=== PATIENT | female | born 1995 | race Caucasian/White ===

== ENCOUNTER 2020-06-05 01:15 | Inpatient (IN) | payer BC ==
[2020-06-05] MEDS ORDERED: CARBOPROST TROMETHAMINE 250 MCG/ML 1 ML AMP IM PRN (01:48)
[2020-06-05] MEDS ORDERED: OXYTOCIN 10 UNIT/ML 1 ML VIAL IM PRN (01:48)
[2020-06-05] MEDS ORDERED: LIDOCAINE 0.5% (PF) 5 MG/ML (50 ML SDV) SQ PRN (01:48)
[2020-06-05] MEDS ORDERED: METHYLERGONOVINE 0.2 MG/ML 1 ML AMP IM PRN (01:48)
[2020-06-05] MEDS ORDERED: TERBUTALINE 1 MG/ML VIAL SQ PRN (01:48)
[2020-06-05 02:31] LABS: Basophils # (A) 0.1 k/uL (0-0.2); Basophils % (A) 0 %; Eosinophils # (A) 0.1 k/uL (0-0.7); Eosinophils % (A) 0 %; HCT 41.4 % (34.0-46.0); HGB 13.5 gm/dL (11.4-16.0); Lymphocytes # (A) 3.1 k/uL (1.0-4.8); Lymphocytes % (A) 12 %; MCH 29.1 pg (25.0-35.0); MCHC 32.6 g/dL (31.0-37.0); MCV 89.3 fL (80.0-100.0); Mean Platelet Volume 9.2; Monocytes # (A) 1.1 k/uL (0-1.0); Monocytes % (A) 4 %; Neutrophils # (A) 21.4 k/uL (1.3-7.7); Neutrophils % (A) 81 %; Platelet Count 386 k/uL (150-450); RBC 4.64 m/uL (3.80-5.40); RDW 13.1 % (11.5-15.5); WBC 26.4 k/uL (3.8-10.6)
[2020-06-05] MEDS ORDERED: diphenhydrAMINE 50 MG CAP PO PRN (03:59)
[2020-06-05] MEDS ORDERED: LANOLIN CREAM 5 GM TUBE TOPICAL PRN (03:59)
[2020-06-05] MEDS ORDERED: ZOLPIDEM 5 MG TAB PO PRN (03:59)
[2020-06-05] MEDS ORDERED: BENZOCAINE/MENTHOL SPRAY 1 GM/SPRAY AEROSOL TOPICAL PRN (03:59)
[2020-06-05] MEDS ORDERED: diphenhydrAMINE 50 MG/ML 1 ML VIAL IVP PRN ×2 (03:59)
[2020-06-05] MEDS ORDERED: HYDROCORTISONE 2.5% RECTAL CREAM 30 GM TUBE RECTAL PRN (03:59)
[2020-06-05] MEDS ORDERED: SIMETHICONE 80 MG CHEWABLE PO PRN (03:59)
[2020-06-05] MEDS ORDERED: diphenhydrAMINE 25 MG CAP PO PRN (03:59)
[2020-06-05] MEDS ORDERED: ACETAMINOPHEN TAB 325 MG TAB PO PRN (03:59)
[2020-06-05] MEDS ORDERED: OXYTOCIN 20 UNITS/1000 ML NS 1,000 ML IV SCH (04:00)
--- NOTE | 2020-06-05 04:08 | P.HPOB ---
History of Present Illness H&P Date: 06/05/20 Chief Complaint: Regular uterine contractions This is a 24-year-old white female 1 para 0 EDC 06/16/2028 at 38-3/7 weeks' gestation. Patient presented from home with strong regular uterine contractions. Fetus is been active throughout the . She denied vag inal bleeding or fluid leakage. Past medical history is unremarkable. Past surgical history is negative. Current medications vitamins daily, baby aspirin daily. ALLERGIES Ceclor, reaction unknown. Family history significant for hypertension, type 2 diabetes, aneurysm. Social history patient is single, boyfriend is present and involved. She was a previous marijuana smoker but quit for . She denies tobacco alcohol or drug use. history is significant for blood type O+, rubella status immune. VDRL testing, hepatitis B surface antigen, HIV testing, urine culture, gonorrhea and chlamydia cultures, group B strep cultures all negative. One-hour Glucola 131. On exam patient is 6 foot 0 inches, 265 pounds, blood pressure 136/85 on admission, pulse 80, vital signs stable and she is afebrile. The general physical exam is within normal limits. She has multiple tattoos throughout the body, along with bilateral piercing. Chest is otherwise clear. Cervix is 5 cm dilated on admission, 9 cm dilated, vertex presentation, 90% effaced, -1 station at the bedside. Artificial amniorrhexis reveals scant clear fluid. heart rate is consistent with reactive NST. Impression: 38-3/7 weeks intrauterine , active spontaneous labor. All signs reassuring. Plan close maternal and surveillance. Epidural has been requested but labs are still pending. Anticipate normal spontaneous vaginal delivery. Review of Systems Constitutional: Reports as per HPI Past Medical History Past Medical History: No Reported History History of Any Multi-Drug Resistant Organisms: None Reported Past Surgical History: No Surgical Hx Reported Past Anesthesia/Blood Transfusion Reactions: No Reported Reaction Past Psychological History: No Psychological Hx Reported Smoking Status: Never smoker Past Drug Use History: Marijuana - Past Family History Mother Family Medical History: No Reported History Medications and Allergies Home Medications Medication Instructions Recorded Confirmed Type No Known Home Medications 06/05/20 06/05/20 History Allergies Allergy/AdvReac Type Severity Reaction Status Date / Time cefaclor [From Ceclor] AdvReac Unknown Verified 06/05/20 01:24 Childhood Exam Vital Signs Temp Pulse Resp BP 06/05/20 01:48 98.1 F 80 18 136/85 Intake and Output 06/04/20 06/04/20 06/05/20 14:59 22:59 06:59 Other: Weight 120.202 kg See dictation under HPI please Results Result Diagrams: 06/05/20 02:00 Abnormal Lab Results - Last 24 Hours (Table) 06/05/20 Range/Units 02:00 WBC 26.4 H (3.8-10.6) k/uL Neutrophils # 21.4 H (1.3-7.7) k/uL Monocytes # 1.1 H (0-1.0) k/uL Assessment and Plan Assessment: 38-3/7 weeks intrauterine , active spontaneous labor. All signs reassuring. Plan: Continue close maternal and surveillance. Anticipate normal spontaneous vaginal delivery. Time with Patient: Less than 30
--- NOTE | 2020-06-05 04:11 | P.PROBDLV ---
Vaginal Delivery Note - . Vaginal Delivery Note: This is a 24-year-old white female 1 para 0 EDC 06/16/2020 at 38-3/7 weeks' gestation. Patient presented in strong active labor, denying vaginal bleeding or fluid leakage. Admission in triage revealed an exam of 5 cm dilation. Patient was admitted. She requested an epidural however she was 8-9 cm before the labs were available. Stadol was offered and declined. Please see admitting H&P for details. Patient progressed well through the first stage of labor was judged to be completely dilated at 0305 hrs. Artificial amniorrhexis had revealed clear fluid. She began the second stage of labor at that time. Perineal body was prepped and draped in usual sterile fashion. With excellent maternal expulsive efforts 's head delivered and she restituted accordingly at 0342 hours. There was no nuchal cord noted. The left or anterior shoulder was gently delivered from underneath the pubic symphysis at which time the oropharynx, nasopharynx, and external nares were all bulb suctioned on the perineal body. Patient was officially delivered of a liveborn female at 0348 hours. Umbilical cord was doubly clamped and ligated, she was handed to waiting nurses for evaluation where scores of 8 and 9 at one and 5 minutes respectively were given. The placenta delivered spontaneously, it was inspected and noted to be intact with trivascular cord at 0348 hours. At this time the uterus is massaged and oxytocin is given. Careful inspection of the cervix, vagina, perineum, periurethral, and perirectal areas revealed a small left labial laceration, first-degree. This was injected with lidocaine and repaired with a single [id number] suture of repeat. All sponge needle and enhancement counts are correct and the procedure. Patient is allowed to begin the bonding experience in the LDR.
[2020-06-05] MEDS: IBUPROFEN 600 MG TAB PO PRN ×2 (04:18→15:28)
[2020-06-05] MEDS: SENNOSIDES-DOCUSATE SODIUM 1 EACH TAB PO SCH ×2 (08:59→21:17)
[2020-06-05] MEDS: LACTATED RINGERS 1,000 ML IV SCH (21:16)
[2020-06-05 23:59] VITALS: TEMP 98.9
[2020-06-06] MEDS: IBUPROFEN 600 MG TAB PO PRN (05:10)
[2020-06-06 07:26] LABS: Basophils # (A) 0.1 k/uL (0-0.2); Basophils % (A) 1 %; Eosinophils # (A) 0.2 k/uL (0-0.7); Eosinophils % (A) 1 %; HCT 36.1 % (34.0-46.0); HGB 11.7 gm/dL (11.4-16.0); Lymphocytes # (A) 3.6 k/uL (1.0-4.8); Lymphocytes % (A) 19 %; MCH 29.7 pg (25.0-35.0); MCHC 32.5 g/dL (31.0-37.0); MCV 91.4 fL (80.0-100.0); Mean Platelet Volume 8.7; Monocytes # (A) 0.9 k/uL (0-1.0); Monocytes % (A) 5 %; Neutrophils # (A) 13.5 k/uL (1.3-7.7); Neutrophils % (A) 72 %; Platelet Count 330 k/uL (150-450); RBC 3.95 m/uL (3.80-5.40); RDW 13.4 % (11.5-15.5); WBC 18.7 k/uL (3.8-10.6)
[2020-06-06] MEDS: SENNOSIDES-DOCUSATE SODIUM 1 EACH TAB PO SCH (08:00)
--- NOTE | 2020-06-06 09:03 | P.DS ---
Providers Date of admission: 06/05/20 01:47 Expected date of discharge: 06/06/20 Attending physician: Claudia Ma Primary care physician: Stated None - Discharge Diagnosis(es) (1) Term Current Visit: Yes Status: Acute (2) Active labor Current Visit: Yes Status: Acute (3) Status post vaginal delivery Current Visit: Yes Status: Acute Hospital Course: This is a 24-year-old 1 para 0 that presented to labor and delivery at 38-3/7 weeks' complaints of regular painful contractions. Patient had been receiving routine care and noted good movement upon presentation. Patient denied vaginal bleeding or loss of fluid at that time of admission. Patient was admitted to labor and delivery and progressed through labor. Patient became complete and started pushing and had a normal spontaneous vaginal delivery of a viable female at 342, weight of 7 lbs. 2 oz. and Apgars of 8 and 9 at one and 5 minutes respectively. Patient did sustain a first-degree labial laceration that was repaired without difficulty. Patient has done well . On this day #1 she is ambulating and voiding without difficulty she is tolerating a regular diet without nausea or vomiting. She is breast-feeding without difficulty. She states she does wish discharge home. Patient Condition at Discharge: Good Plan - Discharge Summary New Discharge Prescriptions: No Action No Known Home Medications Discharge Medication List No Known Home Medications 06/05/20 [History] Follow up Appointment(s)/Referral(s): Claudia Ma MD [STAFF PHYSICIAN] - 6 Weeks Patient Instructions/Handouts: Vaginal Delivery (DC), Vaginal Delivery (GEN) Discharge Disposition: HOME SELF-CARE
[2020-06-06 09:39] VITALS: BP 136/82; PULSE 76; RESP 18
== END 2020-06-06 11:35 | disposition home or self-care (01) | DRG 807 ==
LOC: FBPOP 01:15 → 4FBP 01:47
PROVIDERS: ADMIT Obstetrics & Gynecology; ATTEND Obstetrics & Gynecology
PROC: 10E0XZZ Delivery of Products of Conception, External Approach (ICD-10-PCS; principal; 2020-06-05)
PROC: 0HQ9XZZ Repair Perineum Skin, External Approach (ICD-10-PCS; 2020-06-05)
DX: O70.0 First degree perineal laceration during delivery (principal); Z37.0 Single live birth; Z3A.38 38 weeks gestation of pregnancy; Z88.1 Allergy status to other antibiotic agents; Z83.3 Family history of diabetes mellitus; Z82.49 Family history of ischemic heart disease and other diseases of the circulatory system
CPT/HCPCS: 59025; 85025; 86850; 86900; 86901; 99213

== ENCOUNTER → 2021-01-11 | Outpatient (CLI) | payer BC | END | disposition home or self-care (01) | LOC: LABWHC1 16:12 | PROVIDERS: ATTEND Emergency Medicine | DX: Z20.822 Contact with and (suspected) exposure to COVID-19 (principal) ==

== ENCOUNTER → 2023-01-04 | Outpatient (CLI) | payer BC ==
[2023-01-04 15:37] LABS: HCT 34.9 % (37.2-46.3); HGB 11.7 g/dL (12.0-15.0); MCHC 33.5 g/dL (32.0-37.0); MCV 92.3 fL (80.0-97.0); Mean Platelet Volume 11.1 fL (9.5-12.2); NRBC Per 100 WBC 0 /100 WBCS (0.0-0.0); Platelet Count 326 X 10*3/uL (140-440); RBC 3.78 X 10*6/uL (4.10-5.20); WBC 16.17 X 10*3/uL (4.50-10.00)
== END | disposition home or self-care (01) ==
LOC: LABWHC1 11:29
PROVIDERS: ATTEND Obstetrics & Gynecology
DX: Z36.9 Encounter for antenatal screening, unspecified (principal)
CPT/HCPCS: 36415; 82950; 85027

== ENCOUNTER 2023-03-20 05:55 | Inpatient (IN) | payer BC, OTHER ==
[2023-03-20] MEDS: LACTATED RINGERS 1,000 ML IV SCH ×2 (06:05→11:26)
[2023-03-20] MEDS ORDERED: LIDOCAINE 0.5% (PF) 5 MG/ML (50 ML SDV) SQ PRN (06:09)
[2023-03-20] MEDS ORDERED: TRANEXAMIC 1,000 MG/100ML-NACL 1,000 MG in EMPTY BAG 1 BAG IV PRN (06:09)
[2023-03-20] MEDS ORDERED: OXYTOCIN 10 UNIT/ML 1 ML VIAL IM PRN (06:09)
[2023-03-20] MEDS ORDERED: METHYLERGONOVINE 0.2 MG/ML 1 ML AMP IM PRN (06:09)
[2023-03-20] MEDS ORDERED: TERBUTALINE 1 MG/ML VIAL SQ PRN (06:09)
[2023-03-20] MEDS ORDERED: miSOPROStoL 200 MCG TAB PO PRN (06:09)
[2023-03-20] MEDS ORDERED: CARBOPROST TROMETHAMINE 250 MCG/ML 1 ML AMP IM PRN (06:09)
[2023-03-20] MEDS ORDERED: OXYTOCIN 30 UNITS/500 ML NS 30 UNIT in SALINE 1 500ML.BAG IV SCH ×2 (06:15→13:15)
[2023-03-20 06:57] LABS: Basophils # (A) 0.1 k/uL (0-0.2); Basophils % (A) 0 %; Eosinophils # (A) 0.3 k/uL (0-0.7); Eosinophils % (A) 2 %; HCT 37.8 % (34.0-46.0); HGB 12.5 gm/dL (11.4-16.0); Lymphocytes # (A) 3.4 k/uL (1.0-4.8); Lymphocytes % (A) 23 %; MCHC 32.9 g/dL (31.0-37.0); MCV 91.2 fL (80.0-100.0); Mean Platelet Volume 9.5; Monocytes # (A) 0.9 k/uL (0-1.0); Monocytes % (A) 6 %; Neutrophils # (A) 10.1 k/uL (1.3-7.7); Neutrophils % (A) 67 %; Platelet Count 346 k/uL (150-450); RBC 4.15 m/uL (3.80-5.40); RDW 13.2 % (11.5-15.5); WBC 15.1 k/uL (3.8-10.6)
--- NOTE | 2023-03-20 08:32 | P.HPOB ---
History of Present Illness H&P Date: 03/20/23 Chief Complaint: elective induction of labor Ms. Nascimento is a 27 year old at 39 weeks and 1 day (with EDC of 03/26/2023 by LMP c/w 10 week US) who presents to labor and delivery for elective induction of labor. has been complicated by tobacco and marijuana use. Patient was counseled during the on the risks associated with use of these and was advised to quit. At 32 weeks the fetus measured in the 60%ile for gestational age on ultrasound. Obstetric history: 1 full term vaginal delivery, female infant weighing 7#2ounces, no complications Maternal serologies: blood type O positive, antibody screen negative, rubella immune, VDRL non-reactive, HBsAg negative, HIV negative, 1 hour GTT 116, GBS negative. TDap administered on 01/02/2023. Past Medical History Past Medical History: No Reported History History of Any Multi-Drug Resistant Organisms: None Reported Past Surgical History: No Surgical Hx Reported Past Anesthesia/Blood Transfusion Reactions: No Reported Reaction Past Psychological History: No Psychological Hx Reported Smoking Status: Never smoker Past Drug Use History: Marijuana - Past Family History Mother Family Medical History: No Reported History Medications and Allergies Home Medications Medication Instructions Recorded Confirmed Type Aspirin [[place] Aspirin EC] 81 mg PO DAILY 03/20/23 03/20/23 History Vit No.179/Iron/Folic 1 tablet PO DAILY 03/20/23 03/20/23 History [ Tablet] Allergies Allergy/AdvReac Type Severity Reaction Status Date / Time cefaclor [From [facility]] AdvReac Unknown Verified 03/20/23 06:01 Childhood Exam Vital Signs Temp Pulse Resp BP Pulse Ox 03/20/23 06:00 96.7 F L 56 L 16 122/83 100 Intake and Output 03/19/23 03/20/23 03/20/23 22:59 06:59 14:59 Other: Weight 104.326 kg Focused physical exam is performed. This is a healthy-appearing in no apparent distress. Abdomen gravid, non-tender. Cervical exam is 3 centimeters, 70% effaced, and -3 station. AROM is undertaken with clear fluid noted. Extremities non-tender, non-edematous. heart tones are reactive and reassuring on NST. Results Result Diagrams: 03/20/23 06:02 Abnormal Lab Results - Last 24 Hours (Table) 03/20/23 Range/Units 06:02 WBC 15.1 H (3.8-10.6) k/uL Neutrophils # 10.1 H (1.3-7.7) k/uL Assessment and Plan Assessment: 27 year old at 39 weeks and 1 day presenting for elective induction of labor Plan: Admit, NPO, mIVF, pitocin per protocol, s/p AROM, epidural prn. Time with Patient: Less than 30
[2023-03-20] MEDS ORDERED: ZOLPIDEM 5 MG TAB PO PRN (13:12)
[2023-03-20] MEDS ORDERED: diphenhydrAMINE 50 MG/ML 1 ML VIAL IVP PRN ×2 (13:12)
[2023-03-20] MEDS ORDERED: SIMETHICONE 80 MG CHEWABLE PO PRN (13:12)
[2023-03-20] MEDS ORDERED: HYDROCORTISONE 2.5% RECTAL CREAM 30 GM TUBE RECTAL PRN (13:12)
[2023-03-20] MEDS ORDERED: diphenhydrAMINE 50 MG CAP PO PRN (13:12)
[2023-03-20] MEDS ORDERED: LANOLIN CREAM 5 GM TUBE TOPICAL PRN (13:12)
[2023-03-20] MEDS ORDERED: diphenhydrAMINE 25 MG CAP PO PRN (13:12)
[2023-03-20] MEDS ORDERED: IBUPROFEN 600 MG TAB PO PRN (13:12)
[2023-03-20] MEDS ORDERED: BENZOCAINE/MENTHOL SPRAY 1 GM/SPRAY AEROSOL TOPICAL PRN (13:12)
[2023-03-20] MEDS ORDERED: ACETAMINOPHEN TAB 325 MG TAB PO PRN (13:12)
--- NOTE | 2023-03-20 13:12 | P.PROBDLV ---
Vaginal Delivery Note - . Vaginal Delivery Note: DATE OF SERVICE: 03/20/2023 PROCEDURE: Vaginal Delivery ATTENDING: Dr. Yari Wagner MD ESTIMATED BLOOD LOSS: 200 mL FINDINGS: VMI, Apgars 9/9, Weight 7#0oz PROCEDURE: Patient was a 27y/o at 39 weeks and 1 day who presented to labor and delivery for elective induction of labor. Patient progressed quickly to complete dilation after AROM was performed and oxytocin had been running per protocol. Head delivered and a 1-minute shoulder dystocia was encountered. Please see separate paperwork for further details on the maneuvers performed. One nuchal cord was reduced and the shoulders and body were delivered over intact perineum. Infant placed on maternal abdomen and bulb suctioned. Cord was clamped and cut. Placenta delivered whole with gentle cord traction. Oxytocin was started to facilitate uterine tone. Uterine fundus firm and bleeding minimal upon fundal massage. Perineal inspection revealed a periurethral abrasion that was hemostatic and did not require repair. Patient stable .
[2023-03-20] MEDS: SENNOSIDES-DOCUSATE SODIUM 1 EACH TAB PO SCH (20:43)
[2023-03-21 00:48] VITALS: PULSE 61; RESP 16
[2023-03-21] MEDS: SENNOSIDES-DOCUSATE SODIUM 1 EACH TAB PO SCH (07:51)
[2023-03-21 08:00] VITALS: BP 116/80; TEMP 98.2
--- NOTE | 2023-03-21 09:55 | P.PNOBGVD ---
Subjective - Subjective Principal diagnosis: s/p vaginal delivery complicated by shoulder dystocia Interval history: The patient is doing well this morning and had no acute events overnight. She has no complaints this morning. She reports minimal lochia, passing flatus, voiding without difficulty, ambulating, and eating/drinking without nausea or vomiting. She is her infant without difficulty. She denies chest pain, shortness of breathing, fevers, or chills overnight. She denies pain or swelling in the legs. Patient reports: Reports appetite normal, Reports voiding normally, Reports pain well controlled, Reports ambulating normally : doing well, nursing well Objective - Latest Vital Signs Latest vital signs: Vital Signs Temp Pulse Resp BP Pulse Ox 03/21/23 07:58 98.2 F 61 16 116/80 99 03/21/23 00:00 98.6 F 61 16 113/61 03/20/23 20:00 98.1 F 56 L 17 111/71 100 03/20/23 16:00 97.9 F 66 16 113/77 100 03/20/23 15:12 54 L 16 122/79 03/20/23 14:42 55 L 16 126/83 03/20/23 14:12 56 L 16 144/63 03/20/23 13:57 48 L 16 125/68 03/20/23 13:42 62 16 124/82 03/20/23 13:27 62 16 124/82 03/20/23 13:12 59 L 16 120/61 100 Intake and Output 03/20/23 03/21/23 03/21/23 22:59 06:59 14:59 Intake Total 1150 Output Total 64 Balance 1086 Intake: IV 1150 Output: Output, Quantitative 64 Blood Loss Other: # Voids 1 - Exam Extremities: Present: normal Abdomen: Present: normal appearance Uterus: Present: normal, firm Assessment and Plan Assessment: 27 year old now PPD#1 s/p vaginal delivery complicated by shoulder dystocia Plan: Patient meeting all milestones appropriately. Will discharge home today after infant circumcision.
--- NOTE | 2023-03-21 09:58 | P.DS ---
Providers Date of admission: 03/20/23 05:55 Expected date of discharge: 03/21/23 Attending physician: Yari Wagner MD Primary care physician: Stated None Hospital Course: 27 year old now PPD#1 s/p vaginal delivery complicated by shoulder dystocia. The patient is doing well this morning and had no acute events overnight. She has no complaints this morning. She desires discharge home today. She reports minimal lochia, passing flatus, voiding without difficulty, ambulating, and eating/drinking without nausea or vomiting. doing well at bedside, s/p circumcision. She denies chest pain, shortness of breathing, fevers , or chills overnight. She denies pain or swelling in the legs. restrictions are reviewed with the patient including pelvic rest for 6 weeks. The patient is encouraged to call the office if she experiences any heavy bleeding, foul-smelling discharge, breast complaints, or any if she has any other concerns. She will follow up in the office in 6 weeks for exam. All questions are answered. Assessment: 27 year old now PPD#1 s/p vaginal delivery complicated by shoulder dystocia Patient Condition at Discharge: Good Plan - Discharge Summary Discharge Rx Participant: No New Discharge Prescriptions: No Action Aspirin [[place] Aspirin EC] 81 mg PO DAILY Vit No.179/Iron/Folic [ Tablet] 1 tablet PO DAILY Discharge Medication List Aspirin [[place] Aspirin EC] 81 mg PO DAILY 03/20/23 [History] Vit No.179/Iron/Folic [ Tablet] 1 tablet PO DAILY 03/20/23 [History] Follow up Appointment(s)/Referral(s): Yari Wagner MD [STAFF PHYSICIAN] - 6 Weeks ( visit) Patient Instructions/Handouts: Depression (DC), Perineal Care (DC), Bleeding (DC) Activity/Diet/Wound Care/Special Instructions: Pelvic rest for 6 weeks Discharge Disposition: HOME SELF-CARE
[2023-03-21 12:00] LABS: Basophils # (A) 0.1 k/uL (0-0.2); Basophils % (A) 0 %; Eosinophils # (A) 0.1 k/uL (0-0.7); Eosinophils % (A) 0 %; HCT 38.7 % (34.0-46.0); HGB 12.7 gm/dL (11.4-16.0); Lymphocytes # (A) 3.9 k/uL (1.0-4.8); Lymphocytes % (A) 20 %; MCH 30.2 pg (25.0-35.0); MCHC 32.8 g/dL (31.0-37.0); MCV 91.9 fL (80.0-100.0); Mean Platelet Volume 9.6; Monocytes % (A) 5 %; Neutrophils # (A) 14.3 k/uL (1.3-7.7); Neutrophils % (A) 72 %; Platelet Count 342 k/uL (150-450); RBC 4.22 m/uL (3.80-5.40); RDW 13.2 % (11.5-15.5); WBC 19.8 k/uL (3.8-10.6)
== END 2023-03-21 13:35 | disposition home or self-care (01) | DRG 807 ==
LOC: 4FBP 05:55
PROVIDERS: ADMIT Obstetrics & Gynecology; ATTEND Obstetrics & Gynecology
PROC: 10907ZC Drainage of Amniotic Fluid, Therapeutic from Products of Conception, Via Natural or Artificial Opening (ICD-10-PCS; principal; 2023-03-20)
PROC: 10E0XZZ Delivery of Products of Conception, External Approach (ICD-10-PCS; principal; 2023-03-20)
PROC: 3E033VJ Introduction of Other Hormone into Peripheral Vein, Percutaneous Approach (ICD-10-PCS; principal; 2023-03-20)
DX: O99.334 Smoking (tobacco) complicating childbirth (principal); O99.324 Drug use complicating childbirth; F17.200 Nicotine dependence, unspecified, uncomplicated; O71.82 Other specified trauma to perineum and vulva; O69.81X0 Labor and delivery complicated by cord around neck, without compression, not applicable or unspecified; F12.90 Cannabis use, unspecified, uncomplicated; O66.0 Obstructed labor due to shoulder dystocia; Z3A.39 39 weeks gestation of pregnancy; Z28.310 Unvaccinated for COVID-19; Z88.1 Allergy status to other antibiotic agents; Z79.82 Long term (current) use of aspirin; Z37.0 Single live birth
CPT/HCPCS: 85025; 86850; 86900; 86901